=== PATIENT | male | born 1990 | race Caucasian/White ===

== ENCOUNTER 2018-05-27 16:36 | Observation (INO) ==
[2018-05-27] MEDS ORDERED: Bisacodyl 10 MG Supp RECTAL PRN (19:50)
[2018-05-27] MEDS ORDERED: Acetaminophen 325 MG Tablet PO PRN (19:50)
[2018-05-27] MEDS ORDERED: Zolpidem Tartrate 5 MG Tablet PO PRN (19:50)
[2018-05-27] MEDS ORDERED: Naloxone Inj 0.4 MG/ML Vial IV.PUSH PRN (19:50)
--- NOTE | 2018-05-27 23:33 | P.HPIM ---
[facility] of Present Illness [facility]ician: No Primary Care Physician . Chief Complaint: Bilateral flank pain History of Present Illness: Mr. Fair is a 27-year-old male with metastatic colorectal cancer and ureteral obstruction status post bilateral ureteral stent placements who presented to the emergency room on 05/27/2018 in [place] complaining of bilateral flank pain. A bladder scan was performed in the emergency room and it did not show urinary retention and he was also able to void following an IV fluid bolus. He was seen 2 days ago and had a abdomen/pelvis CT with IV contrast that showed a large mass encasing both of his ureters and resulting in hydronephrosis with hydroureter despite ureteral stenting. The case was discussed by the emergency room physician with the on-call urologist who recommended transfer to [facility] under the hospitalist service with consultation to urology. Mr. Fair is seen in his hospital room. He is extremely pleasant gentleman who reports that his flank pain is finally improved at the time of my visit. He states that he has been having intermittent flank pain over the past 3 days. He states he was at his oncologist's for chemotherapy today and was able to void. However, due to pain, chemotherapy was not initiated and the patient was sent to the hospital instead. The patient is due to have replacement of his ureteral stents on Friday 06/01. He indicates that he was diagnosed with colorectal cancer in October 2014. He denies any recent fevers, chills, chest pain , shortness of breath, nausea, vomiting, or diarrhea. He has a colostomy to his left upper abdomen. . Review of Systems All other systems reviewed negative except as stated in HPI PMFSH - History History Provided By: Patient - Medical History Medical History: Medical History (Last Reviewed 05/28/18 @ 00:38 by MARCIANO Soliman) Colorectal cancer Colostomy in place Port-A-Cath in place - Surgical History Surgical History: Surgical History (Last Reviewed 05/28/18 @ 00:38 by MARCIANO Soliman) History of renal stent - Family History Family History: Family History (Last Updated 05/28/18 @ 02:25 by MARCIANO Soliman) Mother Dysplastic colon polyp Aunt Dysplastic colon polyp Grandparent Colorectal cancer - Social History I have reviewed the patient's Social History: Yes - Tobacco History Smoking Status: Former smoker - Alcohol History How Often Do You Have a Drink Containing Alcohol: 2 to 4 times a month - Substance Use History Substance History: Active Abuse - Immunization History Tetanus Immunization Year if Known: 2013 Medications and Allergies Active Medications: Active Medications Acetaminophen (Tylenol) 650 mg PO Q4H PRN PRN Reason: Temp > 100.4 Al Hydroxide/Mg Hydroxide (Milk Of Magnesia Liq) 30 ml PO Q12H PRN PRN Reason: Mild Constipation Bisacodyl (Dulcolax Supp) 10 mg RECTAL DAILY PRN PRN Reason: SEVERE CONSITIPATION Sodium Chloride (Ns Inj) 1,000 mls @ 100 mls/hr IV.CONT .Q10H LORNA Ceftriaxone Sodium 1,000 mg/ (Sodium Chloride) 100 mls @ 200 mls/hr IV.SIG Q24H LORNA Lactulose (Lactulose Liq) 30 ml PO DAILY PRN PRN Reason: SEVERE CONSITIPATION Morphine Sulfate (Morphine Inj) 4 mg IV.PUSH Q4H PRN PRN Reason: pain >3 Naloxone HCl (Narcan Inj) 0.4 mg IV.PUSH UNSCH PRN PRN Reason: SEE LABEL COMMENTS Ondansetron HCl (Zofran Inj) 4 mg IV.PUSH Q6H PRN PRN Reason: NAUSEA OR VOMITING Senna/Docusate Sodium (Kimberly-Colace) 1 tab PO BID LORNA Sennosides (Senokot) 17.2 mg PO Q12H PRN PRN Reason: Moderate Constipation Sodium Chloride (Ns Flush) 2 ml IV.FLUSH BID LORNA Sodium Chloride (Ns Flush) 2 ml IV.FLUSH UNSCH PRN PRN Reason: FLUSH AFTER USING IV ACCESS Zolpidem Tartrate (Ambien) 5 mg PO HS PRN PRN Reason: INSOMNIA Allergies Allergy/AdvReac Type Severity Reaction Status Date / Time hydromorphone [From Dilaudid] Allergy Shortness Verified 05/27/18 16:56 of Breath Home Medications Medication Instructions Recorded Confirmed Type alprazolam [Xanax] 0.5 mg PO BID 05/25/18 05/27/18 History bevacizumab [Avastin] 05/25/18 History ciprofloxacin HCl [Cipro] 250 mg PO BID 05/25/18 05/27/18 History ondansetron HCl [Zofran] 4 mg PO Q6-8H PRN 05/25/18 05/27/18 History oxycodone 10 mg PO QID 05/25/18 05/27/18 History Exam Narrative: GENERAL: This is a cachectic and pale mid 21-year-old male patient, in no apparent distress. SKIN: No rashes, ecchymoses. Cool and dry. HEAD: Atraumatic. Normocephalic. EYES: No scleral icterus. No injection or drainage. ENT: Nose without bleeding, purulent drainage. NECK: Trachea midline. No JVD. CARDIOVASCULAR: Regular rate and rhythm without murmurs, gallops, or rubs. RESPIRATORY: Clear to auscultation. Breath sounds equal bilaterally. No wheezes , rales, or rhonchi. GASTROINTESTINAL: Abdomen soft, non-tender, nondistended. No guarding. Empty colostomy bag left upper abdominal quadrant. MUSCULOSKELETAL: Extremities without clubbing, cyanosis, or edema. No calf tenderness. NEUROLOGICAL: Awake and alert. Motor and sensory grossly within normal limits. Normal speech. . Caprini VTE Risk Assessment Caprini VTE Risk Assessment: No/Low Risk (score <= 1) Caprini Risk Assessment Model: Point Value = 1 Point Value = 2 Point Value = 3 Point Value = 5 Age 41-60 Minor surgery BMI > 25 kg/m2 Swollen legs Varicose veins or History of unexplained or recurrent spontaneous Oral contraceptives or hormone replacement Sepsis (< 1 month) Serious lung disease, including pneumonia (< 1 month) Abnormal pulmonary function Acute myocardial infarction Congestive heart failure (< 1 month) History of inflammatory bowel disease Medical patient at bed rest Age 61-74 Arthroscopic surgery Major open surgery (> 45 min) Laparoscopic surgery (> 45 min) Malignancy Confined to bed (> 72 hours) Immobilizing plaster cast Central venous access Age >= 75 History of VTE Family history of VTE Factor V Leiden Prothrombin [id number] Lupus anticoagulant Anticardiolipin antibodies Elevated serum homocysteine Heparin-induced thrombocytopenia Other congenital or acquired thrombophilia Stroke (< 1 month) Elective arthroplasty Hip, pelvis, or leg fracture Acute spinal cord injury (< 1 month) Prophylaxis Regimen: Total Risk Factor Score Risk Level Prophylaxis Regimen 0-1 Low Early ambulation 2 Moderate Order ONE of the following: *Sequential Compression Device (SCD) *Heparin 5000 units SQ BID 3-4 Higher Order ONE of the following medications: *Heparin 5000 units SQ TID *Enoxaparin/Lovenox 40 mg SQ daily (WT < 150 kg, CrCl > 30 mL/min) *Enoxaparin/Lovenox 30 mg SQ daily (WT < 150 kg, CrCl > 10-29 mL/min) *Enoxaparin/Lovenox 30 mg SQ BID (WT < 150 kg, CrCl > 30 mL/min) AND/OR *Sequential Compression Device (SCD) 5 or more Highest Order ONE of the following medications: *Heparin 5000 units SQ TID (Preferred with Epidurals) *Enoxaparin/Lovenox 40 mg SQ daily (WT < 150 kg, CrCl > 30 mL/min) *Enoxaparin/Lovenox 30 mg SQ daily (WT < 150 kg, CrCl > 10-29 mL/min) *Enoxaparin/Lovenox 30 mg SQ BID (WT < 150 kg, CrCl > 30 mL/min) AND *Sequential Compression Device (SCD) Assessment and Plan - Plan Mr. Fair is a 27-year-old male with metastatic colorectal cancer and ureteral obstruction status post bilateral ureteral stent placements who presented to the emergency room on 05/27/2018 in [place] complaining of bilateral flank pain. A bladder scan was performed in the emergency room and it did not show urinary retention and he was also able to void following an IV fluid bolus. He was seen 2 days ago and had a abdomen/pelvis CT with IV contrast that showed a large mass encasing both of his ureters and resulting in hydronephrosis with hydroureter despite ureteral stenting. The case was discussed by the emergency room physician with the on-call urologist who recommended transfer to [facility] under the hospitalist service with consultation to urology. Bilateral flank pain with possible obstructive uropathy despite bilateral ureteral stents -Admit for observation -Consult to urology-appreciate assistance -Continue home Oxycodone 10 mg q8h p.o.; add Morphine 4 mg IV every 4 hours as needed pain -UA abnormal with urine culture pending -patient has been on Cipro and Keflex at home -continue ceftriaxone 1 g every 24 hours started in [place] -IV fluid hydration with normal saline at 100 cc/h Anemia -most likely related to chemotherapy -Repeat CBC in a.m. and follow results DVT prophylaxis -early ambulation Discussed Condition With: Dr. Hutton, Dr. Nguyen,
[2018-05-28] MEDS: Sod Chloride 0.9% Inj 1,000 ML IV.CONT SCH ×3 (00:08→15:43)
[2018-05-28] MEDS: Morphine Inj 4 MG/ML Vial IV.PUSH PRN ×6 (00:09→21:09)
[2018-05-28] MEDS: Senna/Docusate Sodium 8.6/50 MG Tablet PO SCH ×3 (00:09→21:04)
[2018-05-28] MEDS ORDERED: ALPRAZolam 0.5 MG Tablet PO ONE (01:47)
[2018-05-28] MEDS ORDERED: ALPRAZolam 0.5 MG Tablet PO PRN (01:48)
--- NOTE | 2018-05-28 13:06 | P.CONURO ---
History of Present Illness Service: Consult date: 05/28/18 Requesting Physician: Polly Braun Reason for Consult: Bilateral hydronephrosis Primary Care Provider: Sana Primary Care Physician Chief Complaint: Bilateral flank pain History of Present Illness: 27-year-old gentleman with history of metastatic colon cancer with resultant bilateral ureteral obstruction being managed with bilateral ureteral stents. Stents were last placed approximately 3 months ago and the patient scheduled to have the stents exchanged next week. He was admitted for difficulty urinating along with bilateral testicular pain. Since being admitted to the hospital, the patient has been able to void and his testicular pain has diminished. A CT scan of the abdomen and pelvis was performed on May 25 of this year that once again demonstrated a large presacral pelvic mass extending to the bilateral ureters with bilateral hydro-nephrosis. Patient presently denies dysuria or gross hematuria. Review of Systems All other systems reviewed negative except as stated in HPI PMFSH - History History Provided By: Patient - Medical History Medical History: Medical History (Last Reviewed 05/28/18 @ 00:38 by MARCIANO Soliman) Colorectal cancer Colostomy in place Port-A-Cath in place - Surgical History Surgical History: Surgical History (Last Reviewed 05/28/18 @ 00:38 by MARCIANO Soliman) History of renal stent - Family History Family History: Family History (Last Updated 05/28/18 @ 02:25 by MARCIANO Soliman) Mother Dysplastic colon polyp Aunt Dysplastic colon polyp Grandparent Colorectal cancer - Tobacco History Second Hand Smoke Exposure: No Tobacco Use In Past 30 Days: No Smoking Status: Former smoker Tobacco Type: Cigarettes - Alcohol History How Often Do You Have a Drink Containing Alcohol: 2 to 4 times a month - Substance Use History Substance History: Active Abuse - Travel History Recent Travel in the [place] Within the Last 8 Weeks: No Recent Travel Out of the Country Within the Last 8 Weeks: No - Immunization History Tetanus Immunization: <5 Years Tetanus Immunization Year if Known: 2013 Hx Influenza Vaccine This Season: No Medications and Allergies Active Medications: Active Medications Acetaminophen (Tylenol) 650 mg PO Q4H PRN PRN Reason: Temp > 100.4 Al Hydroxide/Mg Hydroxide (Milk Of Magnesia Liq) 30 ml PO Q12H PRN PRN Reason: Mild Constipation Alprazolam (Xanax) 0.5 mg PO HS PRN PRN Reason: INSOMNIA Bisacodyl (Dulcolax Supp) 10 mg RECTAL DAILY PRN PRN Reason: SEVERE CONSITIPATION Sodium Chloride (Ns Inj) 1,000 mls @ 100 mls/hr IV.CONT .Q10H [facility] Last Infusion: 05/28/18 10:36 Dose: Infused Ceftriaxone Sodium 1,000 mg/ (Sodium Chloride) 100 mls @ 200 mls/hr IV.SIG Q24H [facility] Lactulose (Lactulose Liq) 30 ml PO DAILY PRN PRN Reason: SEVERE CONSITIPATION Morphine Sulfate (Morphine Inj) 4 mg IV.PUSH Q4H PRN PRN Reason: pain >3 Last Admin: 05/28/18 12:32 Dose: 4 mg Naloxone HCl (Narcan Inj) 0.4 mg IV.PUSH UNSCH PRN PRN Reason: SEE LABEL COMMENTS Ondansetron HCl (Zofran Inj) 4 mg IV.PUSH Q6H PRN PRN Reason: NAUSEA OR VOMITING Oxycodone HCl (Roxicodone) 10 mg PO Q8H [facility] Last Admin: 05/28/18 10:00 Dose: 10 mg Senna/Docusate Sodium (Kimberly-Colace) 1 tab PO BID [facility] Last Admin: 05/28/18 08:27 Dose: 1 tab Sennosides (Senokot) 17.2 mg PO Q12H PRN PRN Reason: Moderate Constipation Sodium Chloride (Ns Flush) 2 ml IV.FLUSH BID [facility] Last Admin: 05/28/18 08:27 Dose: 2 ml Sodium Chloride (Ns Flush) 2 ml IV.FLUSH UNSCH PRN PRN Reason: FLUSH AFTER USING IV ACCESS Allergies Allergy/AdvReac Type Severity Reaction Status Date / Time hydromorphone [From Dilaudid] Allergy Shortness Verified 05/27/18 16:56 of Breath Home Medications Medication Instructions Recorded Confirmed Type alprazolam [Xanax] 0.5 mg PO BID 05/25/18 05/27/18 History bevacizumab [Avastin] 05/25/18 History ciprofloxacin HCl [Cipro] 250 mg PO BID 05/25/18 05/27/18 History ondansetron HCl [Zofran] 4 mg PO Q6-8H PRN 05/25/18 05/27/18 History oxycodone 10 mg PO QID 05/25/18 05/27/18 History Physical Exam Vital Signs - 24 hr 05/27/18 23:45 05/28/18 00:00 05/28/18 00:18 Temperature 98.3 F Pulse Rate 86 76 Respiratory Rate 18 18 Blood Pressure 123/81 Pulse Oximetry 100 05/28/18 03:00 05/28/18 04:00 05/28/18 04:20 Temperature 97.9 F Pulse Rate 86 69 Respiratory Rate 16 18 Blood Pressure 103/60 Pulse Oximetry 100 05/28/18 07:00 05/28/18 08:21 05/28/18 11:00 Temperature 98.3 F Pulse Rate 57 L 75 63 Respiratory Rate 18 Blood Pressure 111/63 Pulse Oximetry 98 05/28/18 11:55 Temperature 98.2 F Pulse Rate 68 Respiratory Rate 18 Blood Pressure 108/63 Pulse Oximetry 99 Physical Exam: GENERAL: This is a well-nourished, well-developed patient, in no apparent distress. SKIN: No rashes, ecchymoses or lesions. Cool and dry. HEAD: Atraumatic. Normocephalic. No temporal or scalp tenderness. EYES: Pupils equal round and reactive. Extraocular motions intact. No scleral icterus. No injection or drainage. ENT: Nose without bleeding, purulent drainage or septal hematoma. Throat without erythema, tonsillar hypertrophy or exudate. Uvula midline. Airway patent. NECK: Trachea midline. No JVD or lymphadenopathy. Supple, nontender, no meningeal signs. CARDIOVASCULAR: Regular rate and rhythm without murmurs, gallops, or rubs. RESPIRATORY: Clear to auscultation. Breath sounds equal bilaterally. No wheezes , rales, or rhonchi. GASTROINTESTINAL: Abdomen soft, non-tender, nondistended. No hepato-splenomegaly , or palpable masses. No guarding. Colostomy functioning well GENITOURINARY: No CVA tenderness, bladder not distended MUSCULOSKELETAL: Extremities without clubbing, cyanosis, or edema. No joint tenderness, effusion, or edema noted. No calf tenderness. Negative Homans sign bilaterally. NEUROLOGICAL: Awake and alert. Cranial nerves II through XII intact. Motor and sensory grossly within normal limits. Five out of 5 muscle strength in all muscle groups. Normal speech. Assessment and Plan - Assessment (1) Hydronephrosis, bilateral Code(s): N13.30 - Unspecified hydronephrosis Status: Acute - Plan Urologic impression: 1. 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 2. Metastatic colon cancer Plan: 1. Keep n.p.o. after midnight 2. We will place the patient on the OR schedule for tomorrow morning for cystoscopy, bilateral retrograde pyelogram studies and bilateral ureteral stent exchange.
--- NOTE | 2018-05-28 15:26 | P.PN ---
Subjective Interval history: awaqke and alert no complains of pain good po Physical Exam Vital signs: Vital Signs 05/27/18 23:45 05/28/18 00:00 05/28/18 00:18 Temperature 98.3 F Pulse Rate 86 76 Respiratory Rate 18 18 Blood Pressure 123/81 Pulse Oximetry 100 05/28/18 03:00 05/28/18 04:00 05/28/18 04:20 Temperature 97.9 F Pulse Rate 86 69 Respiratory Rate 16 18 Blood Pressure 103/60 Pulse Oximetry 100 05/28/18 07:00 05/28/18 08:21 05/28/18 11:00 Temperature 98.3 F Pulse Rate 57 L 75 63 Respiratory Rate 18 Blood Pressure 111/63 Pulse Oximetry 98 05/28/18 11:55 Temperature 98.2 F Pulse Rate 68 Respiratory Rate 18 Blood Pressure 108/63 Pulse Oximetry 99 Intake & Output 05/27/18 05/28/18 05/28/18 18:59 06:59 18:59 Intake Total 480 / 480 1000 / 1000 Balance 480 / 480 1000 / 1000 Weight 65.9 kg Intake: IV 1000 / 1000 NS Inj 1,000 ML @ 100 mls/hr IV 1000 / 1000 .CONT .Q10H LORNA Rx#:[id number] Oral 480 / 480 Other: # Voids 3 Date of Last Bowel Movement 05/28/18 Weight On Admission 65.771 kg Narrative: GENERAL:blunt affect, in no apparent distress. HEAD: Atraumatic. Normocephalic. EYES: No scleral icterus. No injection or drainage. ENT: Nose without bleeding, purulent drainage. NECK: Trachea midline. No JVD. CARDIOVASCULAR: Regular rate and rhythm without murmurs, gallops, or rubs. RESPIRATORY: Clear to auscultation. Breath sounds equal bilaterally. No wheezes , rales, or rhonchi. GASTROINTESTINAL: Abdomen soft, non-tender, nondistended. No guarding. colostomy bag in place MUSCULOSKELETAL: Extremities without clubbing, cyanosis, or edema. No calf tenderness. NEUROLOGICAL: Awake and alert. Motor and sensory grossly within normal limits. Normal speech. . Assessment and Plan - Plan Mr. Fair is a 27-year-old male with metastatic colorectal cancer and ureteral obstruction status post bilateral ureteral stent placements who presented to the emergency room on 05/27/2018 in [place] complaining of bilateral flank pain. A bladder scan was performed in the emergency room and it did not show urinary retention and he was also able to void following an IV fluid bolus. He was seen 2 days ago and had a abdomen/pelvis CT with IV contrast that showed a large mass encasing both of his ureters and resulting in hydronephrosis with hydroureter despite ureteral stenting. 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 - good renal functions - Urology ff- for OR tomorrow- cystoscopy and bialteral ureteral exchange -Continue home Oxycodone 10 mg q8h p.o.; add Morphine 4 mg IV every 4 hours as needed pain Pyuria -UA abnormal - with RBC innumerable and 20- 50 + WBCs urine culture still pending - from 05/27- [place] visit patient has been on Cipro and Keflex at home continue ceftriaxone 1 g every 24 hours started in [place] for now if cultures negative- DC antibiotics -IV fluid hydration with normal saline at 60 cc/hr Anemia -most likely related to chemotherapy -Repeat CBC in a.m. and follow results DVT prophylaxis -early ambulation
[2018-05-28 15:46] LABS: Baso % (Auto) 0.5 % (0.0-2.0); Eos # (Auto) 0.1 th/mm3 (0.0-0.4); Eos % (Auto) 4.4 % (0.0-4.0); Hematocrit 28.2 % (39.0-51.0); Hemoglobin 9.3 gm/dL (13.0-17.0); Lymph # (Auto) 1.2 th/mm3 (1.0-4.8); Lymph % (Auto) 35.1 % (9.0-44.0); Mean Corpuscular Hemoglobin 26.5 pg (27.0-34.0); Mean Corpuscular Volume 80.2 fL (80.0-100.0); Mean Platelet Volume 6.8 fL (7.0-11.0); Mono # (Auto) 0.4 th/mm3 (0.0-0.9); Mono % (Auto) 12.2 % (0.0-8.0); Neut # (Auto) 1.6 th/mm3 (1.8-7.7); Neut % (Auto) 47.8 % (16.0-70.0); Platelet Count 223 th/mm3 (150-450); Red Blood Count 3.52 mil/mm3 (4.50-5.90); Red Cell Distribution Width 16.2 % (11.6-17.2); White Blood Count 3.4 th/mm3 (4.0-11.0)
[2018-05-28 16:10] LABS: Anion Gap 5 meq/L (5-15); Blood Urea Nitrogen 6 mg/dL (7-18); Calcium 8.3 mg/dL (8.5-10.1); Carbon Dioxide 27.5 meq/L (21.0-32.0); Chloride 114 meq/L (98-107); Glomerular Filtration Rate Greater Than 89 mL/min (>89); Glucose,Random 89 mg/dL (74-106); Potassium 3.4 meq/L (3.5-5.1); Sodium 146 meq/L (136-145)
[2018-05-28] MEDS: ALPRAZolam 0.5 MG Tablet PO PRN (21:11)
[2018-05-29] MEDS: Morphine Inj 4 MG/ML Vial IV.PUSH PRN ×5 (01:04→21:15)
--- NOTE | 2018-05-29 10:10 | P.PNIM ---
Subjective Interval history: Status post cystoscopy, no pain, no nausea or vomiting. Afebrile. Physical Exam Vital signs: Last Vital Signs Temp 98.5 F 05/29/18 04:00 Pulse 59 L 05/29/18 04:24 Resp 16 05/29/18 04:00 BP 110/65 05/29/18 04:00 Pulse Ox 100 05/29/18 04:00 Intake & Output 05/27/18 05/28/18 05/29/18 05/30/18 06:59 06:59 06:59 06:59 Intake Total 480 / 480 2300 / 2300 Output Total 1850 / 1850 Balance 480 / 480 450 / 450 Weight 65.9 kg 67 kg Narrative: GENERAL:blunt affect, in no apparent distress. CARDIOVASCULAR: Regular rate and rhythm without murmurs, gallops, or rubs. RESPIRATORY: Clear to auscultation. Breath sounds equal bilaterally. No wheezes , rales, or rhonchi. GASTROINTESTINAL: Abdomen soft, non-tender, nondistended. No guarding. colostomy bag in place MUSCULOSKELETAL: Extremities without clubbing, cyanosis, or edema. No calf tenderness. NEUROLOGICAL: Awake and alert. Motor and sensory grossly within normal limits. Normal speech. . Results Labs CBC & Chem 7: 05/28/18 15:29 05/28/18 15:29 Assessment and Plan Plan Mr. Fair is a 27-year-old male with metastatic colorectal cancer and ureteral obstruction status post bilateral ureteral stent placements who presented to the emergency room on 05/27/2018 in [place] complaining of bilateral flank pain. A bladder scan was performed in the emergency room and it did not show urinary retention and he was also able to void following an IV fluid bolus. He was seen 2 days ago and had a abdomen/pelvis CT with IV contrast that showed a large mass encasing both of his ureters and resulting in hydronephrosis with hydroureter despite ureteral stenting. 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 - good renal functions, urology consulted. Urology following, status post cystoscopy andbilateral ureteral stent exchange. Continue home Oxycodone 10 mg q8h p.o.; continue morphine 4 mg IV every 4 hours as needed pain Pyuria-urinalysis showed RBCs, leukocyte esterase and bacteria, urine culture remains negative. Patient has been on Cipro and Keflex at home. On ceftriaxone , stop ceftriaxone. Check CBC and BMP. Hypokalemia--replace, recheck BMP tomorrow. Mild hyponatremia-continue IVF, change to half-normal saline. Check BMP tomorrow. Anemia -most likely related to chemotherapy, hemoglobin stable. DVT prophylaxis:early ambulation, start prophylaxis after surgery if patient will stay. Progress Note: Quality VTE Deep Vein Thrombosis/Pulmonary Embolism Present on Admission: No
[2018-05-29] MEDS ORDERED: fentaNYL Citrate Inj 100 MCG/2 ML Ampul ONE (10:37)
[2018-05-29] MEDS ORDERED: Chlorhexidine Gluconate 2% 1 Pack (2 Cloths) TOPICAL ONE (10:45)
[2018-05-29] MEDS ORDERED: Metoprolol Tartrate 25 MG Tablet PO ONE (10:45)
[2018-05-29] MEDS ORDERED: Sodium Chlor 0.9% Inj 500 ML IV.CONT ONE (10:45)
[2018-05-29] MEDS ORDERED: Iohexol 350 MG/ML 50 ML Vial (for Rad Diag) IVCONTRAST ONE (11:31)
--- NOTE | 2018-05-29 12:02 | P.OP ---
- Preoperative Diagnosis (1) Ureteral obstruction (2) Hydronephrosis, bilateral - Postoperative Diagnosis (1) Hydronephrosis, bilateral (2) Ureteral obstruction Date of procedure: 05/29/18 Procedure: Cystoscopy, bilateral retrograde pyelograms and bilateral ureteral stent placement Implants: Bilateral Crescent ureteral stents sized 6F x 22 cm Anesthesia: ROBERTA Surgeon: Lex Giang MD Estimated blood loss (mL): 0 Pathology: none sent Operation and Findings: Indication for procedures: Case of a pleasant 27-year-old gentleman with metastatic colon cancer with a large pelvic mass compressing both ureters and causing bilateral ureteral obstruction. Patient presents now for exchange of the bilateral ureteral stents. Operative procedures in detail: Patient was brought to the operating room suite and placed supine on the cystoscopy table. He was then placed under general anesthesia. He was then repositioned in the dorsolithotomy position and prepped and draped in normal sterile fashion. After an appropriate timeout was undertaken I proceeded with cystoscopic evaluation utilizing the rigid cystoscope with a 20 [place]ian sheath and the 30 degree lens. The urethra was patent without stricture formation and the prostate was nonobstructing. Further passive cystoscope within the urinary bladder demonstrated the distal loops of the previously placed ureteral stents to be protruding from both ureteral orifice ease. There was some edema from the stents noted to the trigone. No other bladder abnormalities were noted. I proceeded by grasping the distal loop of the right stent with flexible forceps and remove the stent I then passed a sensor 0.035 wire up the patient's right ureter up into the right renal pelvis. A 6 [place] Lucian open-ended catheter was advanced over the wire and the wire withdrawn. A retrograde pyelogram study was performed to outline the right collecting system. I then exchanged the open-ended catheter for a 6 [place] Lucian by 22 cm double-J stent. I initially attempted to pass a 24 cm stent however this was too long for the patient's anatomy. Once the stent was in proper position the trailing string was removed. I then addressed my attention to the contralateral side and in similar fashion a 6 [place] by 22 cm Crescent stent was placed. With both stents in place the bladder was drained of all irrigant fluid and cystoscope was withdrawn. The patient tolerated the procedures without complications and was transferred to the PACU in satisfactory condition. It is anticipated that the patient will be able to be discharged home later today with instructions to follow-up with me in the office in 6 months time.
[2018-05-29] MEDS: Sodium Chloride 0.45 % Inj 1,000 ML IV.CONT SCH (14:21)
[2018-05-29] MEDS: Senna/Docusate Sodium 8.6/50 MG Tablet PO SCH ×2 (16:50→21:15)
[2018-05-29] MEDS: Potassium Chlor 20 mEq Premix 20 MEQ/100 ML PIGGYBACK IV.SIG SCH ×2 (16:50→22:18)
[2018-05-29] MEDS: ALPRAZolam 0.5 MG Tablet PO PRN (23:50)
[2018-05-30] MEDS: Sodium Chloride 0.45 % Inj 1,000 ML IV.CONT SCH (01:46)
[2018-05-30] MEDS: Morphine Inj 4 MG/ML Vial IV.PUSH PRN ×3 (03:27→14:20)
[2018-05-30 08:13] LABS: Baso % (Auto) 0.4 % (0.0-2.0); Eos # (Auto) 0.1 th/mm3 (0.0-0.4); Eos % (Auto) 1.4 % (0.0-4.0); Hematocrit 28.3 % (39.0-51.0); Hemoglobin 9.5 gm/dL (13.0-17.0); Lymph # (Auto) 1.5 th/mm3 (1.0-4.8); Lymph % (Auto) 32.2 % (9.0-44.0); Mean Corpuscular HGB Conc 33.7 % (32.0-36.0); Mean Corpuscular Hemoglobin 26.6 pg (27.0-34.0); Mean Corpuscular Volume 78.9 fL (80.0-100.0); Mean Platelet Volume 7.3 fL (7.0-11.0); Mono # (Auto) 0.5 th/mm3 (0.0-0.9); Mono % (Auto) 11.1 % (0.0-8.0); Neut # (Auto) 2.5 th/mm3 (1.8-7.7); Neut % (Auto) 54.9 % (16.0-70.0); Platelet Count 263 th/mm3 (150-450); Red Blood Count 3.59 mil/mm3 (4.50-5.90); Red Cell Distribution Width 16.8 % (11.6-17.2); White Blood Count 4.6 th/mm3 (4.0-11.0)
[2018-05-30 08:23] VITALS: RESP 16
[2018-05-30 08:39] LABS: Anion Gap 7 meq/L (5-15); Blood Urea Nitrogen 6 mg/dL (7-18); Calcium 8.2 mg/dL (8.5-10.1); Carbon Dioxide 28.4 meq/L (21.0-32.0); Chloride 106 meq/L (98-107); Glomerular Filtration Rate Greater Than 89 mL/min (>89); Glucose,Random 109 mg/dL (74-106); Potassium 3.3 meq/L (3.5-5.1); Sodium 141 meq/L (136-145)
[2018-05-30] MEDS: Senna/Docusate Sodium 8.6/50 MG Tablet PO SCH (10:51)
[2018-05-30 10:58] VITALS: BP 107/62; PULSE 61; TEMP 98.1; O2SAT 100
--- NOTE | 2018-05-30 13:47 | P.PNIM ---
Subjective Interval history: No overnight events, no fever or chills. Physical Exam Vital signs: Last Vital Signs Temp 98.1 F 05/30/18 10:57 Pulse 61 05/30/18 10:57 Resp 16 05/30/18 10:57 BP 107/62 05/30/18 10:57 Pulse Ox 100 05/30/18 10:57 Intake & Output 05/28/18 05/29/18 05/30/18 05/31/18 06:59 06:59 06:59 06:59 Intake Total 480 / 480 2300 / 2300 3420 / 3420 Output Total 1850 / 1850 1175 / 1175 Balance 480 / 480 450 / 450 2245 / 2245 Weight 65.9 kg 67 kg 66.9 kg Narrative: GENERAL:blunt affect, in no apparent distress. CARDIOVASCULAR: Regular rate and rhythm without murmurs, gallops, or rubs. RESPIRATORY: Clear to auscultation. Breath sounds equal bilaterally. No wheezes , rales, or rhonchi. GASTROINTESTINAL: Abdomen soft, non-tender, nondistended. No guarding. colostomy bag in place MUSCULOSKELETAL: Extremities without clubbing, cyanosis, or edema. No calf tenderness. NEUROLOGICAL: Awake and alert. Motor and sensory grossly within normal limits. Normal speech. . Results Labs CBC & Chem 7: 05/30/18 05:59 05/30/18 05:59 Assessment and Plan Plan Mr. Fair is a 27-year-old male with metastatic colorectal cancer and ureteral obstruction status post bilateral ureteral stent placements who presented to the emergency room on 05/27/2018 in [place] complaining of bilateral flank pain. A bladder scan was performed in the emergency room and it did not show urinary retention and he was also able to void following an IV fluid bolus. He was seen 2 days ago and had a abdomen/pelvis CT with IV contrast that showed a large mass encasing both of his ureters and resulting in hydronephrosis with hydroureter despite ureteral stenting. 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 - good renal functions, urology consulted. Urology following, status post cystoscopy and bilateral ureteral stent exchange. Continue home Oxycodone 10 mg q8h p.o.; Christie stable. May be discharged today. Pyuria-urinalysis showed RBCs, leukocyte esterase and bacteria, urine culture remains negative. Patient has been on Cipro and Keflex at home. On ceftriaxone , stop ceftriaxone. No leukocytosis. Hypokalemia--replace, patient is stable. Mild hyponatremia-resolved. Anemia -most likely related to chemotherapy, hemoglobin stable. DVT prophylaxis:early ambulation, start prophylaxis after surgery if patient will stay. Progress Note: Quality VTE Deep Vein Thrombosis/Pulmonary Embolism Present on Admission: No
[2018-05-30] MEDS ORDERED: Potassium Chloride 25 MEQ Effervescent Tablet PO ONE (14:00)
--- NOTE | 2018-05-30 14:05 | P.DS ---
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 Fair is a 27-year-old male with metastatic colorectal cancer and ureteral obstruction status post bilateral ureteral stent placements who presented to the emergency room on 05/27/2018 in [place] complaining of bilateral flank pain. A bladder scan was performed in the emergency room and it did not show urinary retention and he was also able to void following an IV fluid bolus. He was seen 2 days ago and had a abdomen/pelvis CT with IV contrast that showed a large mass encasing both of his ureters and resulting in hydronephrosis with hydroureter despite ureteral stenting. The case was discussed by the emergency room physician with the on-call urologist who recommended transfer to [facility] under the hospitalist service with consultation to urology. Mr. Fair is seen in his hospital room. He is extremely pleasant gentleman who reports that his flank pain is finally improved at the time of my visit. He states that he has been having intermittent flank pain over the past 3 days. He states he was at his oncologist's for chemotherapy today and was able to void. However, due to pain, chemotherapy was not initiated and the patient was sent to the hospital instead. The patient is due to have replacement of his ureteral stents on Friday 06/01. He indicates that he was diagnosed with colorectal cancer in October 2014. He denies any recent fevers, chills, chest pain , shortness of breath, nausea, vomiting, or diarrhea. He has a colostomy to his left upper abdomen. . DS: Diagnosis Discharge Diagnosis (1) Hydronephrosis, bilateral: Status: Acute (2) Ureteral obstruction: Status: Acute DS: Summary Mr. Fair is a 27-year-old male with metastatic colorectal cancer and ureteral obstruction status post bilateral ureteral stent placements who presented to the emergency room on 05/27/2018 in [place] complaining of bilateral flank pain. A bladder scan was performed in the emergency room and it did not show urinary retention and he was also able to void following an IV fluid bolus. He was seen 2 days ago and had a abdomen/pelvis CT with IV contrast that showed a large mass encasing both of his ureters and resulting in hydronephrosis with hydroureter despite ureteral stenting. Urology was consulted, patient went for cystoscopy with bilateral ureteral stent exchange. CBC remained stable, urinalysis showed RBC, leukocyte esterase and bacteria but urine cultures remain negative. He was initially started on ceftriaxone, this was stopped. Patient's CBC remained stable. Creatinine remained stable. Patient was discharged postop day 1. He will need to follow-up with urology in 6 months. Time Spent with Patient Total time spent providing and/or coordinating discharge services: Greater than 30 minutes Quality: VTE Deep Vein Thrombosis/Pulmonary Embolism Present on Admission: No Exam Narrative Exam Narrative: S> No abdominal discomfort, no nausea or vomiting, tolerating diet. Creatinine is stable. Afebrile. O> GENERAL:blunt affect, in no apparent distress. CARDIOVASCULAR: Regular rate and rhythm without murmurs, gallops, or rubs. RESPIRATORY: Clear to auscultation. Breath sounds equal bilaterally. No wheezes , rales, or rhonchi. GASTROINTESTINAL: Abdomen soft, non-tender, nondistended. No guarding. colostomy bag in place MUSCULOSKELETAL: Extremities without clubbing, cyanosis, or edema. No calf tenderness. NEUROLOGICAL: Awake and alert. Motor and sensory grossly within normal limits. Normal speech. . Results Labs on day of discharge: Labs from last 24 hours 05/30/18 05/30/18 05:59 05:59 WBC 4.6 RBC 3.59 L Hgb 9.5 L Hct 28.3 L MCV 78.9 L MCH 26.6 L MCHC 33.7 RDW 16.8 Plt Count 263 MPV 7.3 Neut % (Auto) 54.9 Lymph % (Auto) 32.2 Terrell % (Auto) 11.1 H Eos % (Auto) 1.4 Baso % (Auto) 0.4 Neut # (Auto) 2.5 Lymph # (Auto) 1.5 Terrell # (Auto) 0.5 Eos # (Auto) 0.1 Baso # (Auto) 0.0 WBC Differential . Differential Comment Auto diff final Sodium 141 Potassium 3.3 L Chloride 106 D Carbon Dioxide 28.4 Anion Gap 7 BUN 6 L Creatinine 0.81 Estimated GFR Greater than 89 Random Glucose 109 H Calcium 8.2 L Discharge Plan Discharge Disposition Patient Disposition: 01 Discharge Home Discharge Condition Condition: Good Discharge Order Discharge Orders: Discharge Order (Routine); Ordered 05/30/18 Ordered By: Danica Stratton Discharge Details Anticipated Discharge Date: 05/30/18 Discharge Comment: d/c after getting [facility] ED Provider: Mary Jane Raman Primary Care Provider: Sana Gonsalez Attending Provider: Danica Stratton Other Providers: Asher Escalera Rxs /Orders / Referrals /Forms Prescriptions: No Action ondansetron HCl [Zofran] 4 mg Tablet 4 mg PO Q6-8H PRN (Reason: Nausea And Vomiting) RF: 0 ciprofloxacin HCl [Cipro] 250 mg Tablet 250 mg PO BID RF: 0 alprazolam [Xanax] 0.5 mg Tablet 0.5 mg PO BID RF: 0 bevacizumab [Avastin] 25 mg/mL Solution RF: 0 oxycodone 10 mg Tablet 10 mg PO QID RF: 0 cephalexin [Keflex] 500 mg capsule 500 mg PO BID 7 Days Qty: 14 RF: 0 Referrals: Primary Sana Bartlett [Primary Care Provider] - See Instructions (f/u with Dr. Giang in 6 mos) Status ED Status: Admitted Observation Patient
== END 2018-05-30 15:02 | disposition home or self-care (01) ==
LOC: NEDDLT 23:13 → HCIN 23:13
PROVIDERS: ADMIT Hospitalist; ATTEND Hospitalist